=== PATIENT | male | born 1960 | race African-American/Black ===

== ENCOUNTER 2021-08-25 22:26 | Emergency (ER) | payer OTHER ==
[~2021-08-25] VITALS: Ht 175.3 cm; Wt 107.5 kg
[2021-08-25] MEDS ORDERED: LORazepam 2MG/ML-1ML VIAL IV ONE (23:00)
[2021-08-25] MEDS ORDERED: SODIUM CHLORIDE 0.9% 1,000 ML IV ONE (23:00)
[2021-08-26 00:17] LABS: Basophils # (auto) 0 10 ^3/uL (0-0.2); Basophils % (auto) 0.5 % (0.0-2.0); Eosinophils # (auto) 0.1 10 ^3/uL (0-0.8); Hematocrit 48.2 % (41.0-53.0); Hemoglobin 16.5 g/dL (13.5-17.5); Lymphocytes # (auto) 1.6 10 ^3/uL (0.4-5.4); Mean Corpuscular Hgb Conc. 34.2 g/dL (32.0-36.0); Mean Corpuscular Volume 87.7 fL (80.0-100.0); Monocytes # (auto) 0.8 10 ^3/uL (0-1.3); Neutrophils # (auto) 4.8 10 ^3/uL (1.6-8.6); Neutrophils % (auto) 65.5 % (37.0-80.0); Red Blood Cells 5.49 10^6/uL (4.5-5.90); Red Cell Distribution Width 14.4 % (11.8-14.3); White Blood Cell 7.4 10^3/uL (4.4-10.8)
[2021-08-26 00:29] LABS: Chloride 100 mmol/L (98-107); Sodium 136 mmol/L (136-145)
[2021-08-26 00:33] LABS: Albumin 3.8 g/dL (3.4-5.0); Anion Gap 8 (5-15); BUN/Creatinine Ratio 6.3; Blood Alcohol < 3.0 mg/dL (0-5); Blood Urea Nitrogen 7 mg/dL (7-18); Calcium 9.3 mg/dL (8.5-10.1); Carbon Dioxide 28 mmol/L (21-32); GFR African American 85 mL/min; GFR Non-African American 70 mL/min; Glucose 285 mg/dL (74-106)
[2021-08-26 00:36] LABS: Alanine Aminotransferase 27 U/L (16-61); Alkaline Phosphatase 109 U/L (45-117); Aspartate Aminotransferase 15 U/L (15-37); Bilirubin, Total 0.9 mg/dL (0.2-1.0); Total Protein 8.5 g/dL (6.4-8.2)
[2021-08-26] MEDS ORDERED: POTASSIUM CHL 20 Meq TABLET PO ONE (05:00)
[2021-08-26 06:23] VITALS: BP 164/103
== END 2021-08-26 06:35 | disposition home or self-care (01) ==
LOC: ER 22:26
DX: F41.0 Panic disorder [episodic paroxysmal anxiety] (principal)
CPT/HCPCS: 36415; 80053; 80320; 82962; 85025; 93005